=== PATIENT | female | born 1980 | race Caucasian/White ===

== ENCOUNTER → 2017-09-25 | Outpatient (CLI) | payer OTHER ==
[~2017-09-25] MED LIST: FRRS300 PO; MTR600X PO; OXYC-57 PO; PRENTAB26 PO; ZNTT/150 PO
== END | disposition home or self-care (01) ==
LOC: C.PAPS 16:33
PROVIDERS: ATTEND Obstetrics & Gynecology
DX: Z12.4 Encounter for screening for malignant neoplasm of cervix (principal)

== ENCOUNTER → 2017-09-28 | Outpatient (CLI) | payer OTHER | END | disposition home or self-care (01) | LOC: C.LAB1850 15:00 | PROVIDERS: ATTEND Obstetrics & Gynecology | DX: L68.0 Hirsutism (principal) ==